=== PATIENT | female | born 1990 | race Caucasian/White ===

== ENCOUNTER 2018-09-24 21:12 | Emergency (ER) | payer OTHER ==
[~2018-09-24] VITALS: Ht 160 cm; Wt 70.8 kg
[2018-09-24] MEDS ORDERED: VITAFOL-OB+DHA1 EACH PO (21:34)
[2018-09-24] MEDS ORDERED: AMOXICILLIN875 MG PO (22:58)
[2018-09-24] MEDS ORDERED: REGLAN 10 MG TA10 MG PO (22:58)
[2018-09-24 23:37] VITALS: BP 144/77
== END 2018-09-24 23:39 | disposition home or self-care (01) ==
LOC: ER 21:12
DX: O99.511 Diseases of the respiratory system complicating pregnancy, first trimester (principal); J01.10 Acute frontal sinusitis, unspecified; Z98.890 Other specified postprocedural states; Z88.8 Allergy status to other drugs, medicaments and biological substances; Z3A.08 8 weeks gestation of pregnancy

== ENCOUNTER 2018-10-22 01:58 | Emergency (ER) | payer OTHER ==
[~2018-10-22] VITALS: Ht 152.4 cm; Wt 71.2 kg
[~2018-10-22 01:58] MED LIST: AMOXICILLIN875 MG PO; REGLAN 10 MG TA10 MG PO; VITAFOL-OB+DHA1 EACH PO
[2018-10-22 02:35] LABS: CALCIUM 10.1 mg/dL (8.5-10.1); CREATININE 0.5 mg/dL (0.6-1.0); POTASSIUM 3.9 mmol/L (3.5-5.1)
[2018-10-22 02:41] LABS: ALBUMIN 3.1 g/dL (3.4-5.0); TOTAL BILIRUBIN 0.2 mg/dL (<0.1-1.0); TOTAL PROTEIN 7.5 g/dL (6.4-8.2)
[2018-10-22 02:43] LABS: ABSOLUTE NEUTROPHILS 7.3 thou/uL (1.4-8.2); BASOPHILS 0.3 % (0.0-2.0); EOSINOPHILS 0.7 % (0.0-3.0); LYMPHOCYTES 17.9 % (24.0-44.0); MCHC 34.1 g/dL (28.0-37.0); MCV 84.9 fL (80.0-100.0); MONOCYTES 5.8 % (1.0-8.0); PLATELET COUNT 288 thou/uL (150-400); POLYS 75.3 % (36.0-66.0); RBC 4.48 mil/uL (4.20-5.00); WBC 9.7 thou/uL (4.0-11.0)
[2018-10-22 03:22] LABS: URINE BILIRUBIN NEGATIVE (Negative); URINE BLOOD NEGATIVE (Negative); URINE CLARITY CLEAR; URINE COLOR STRAW; URINE GLUCOSE-RANDOM* NEGATIVE (Negative); URINE KETONES NEGATIVE (Negative); URINE PROTEIN (DIPSTICK) NEGATIVE (Negative)
[2018-10-22 03:23] LABS: URINE LEUKOCYTES-REFLEX NEGATIVE (Negative); URINE NITRITE-REFLEX NEGATIVE (Negative); URINE UROBILINOGEN 0.2 E.U./dl (0.2-1.0)
[2018-10-22] MEDS ORDERED: ZOFRAN 4 MG ORAL4 MG PO (03:32)
[2018-10-22] MEDS ORDERED: CARAFATE 1 GM TA1 G1 PO (03:32)
[2018-10-22] MEDS ORDERED: PEPCID40 MG PO (03:32)
[2018-10-22 03:41] VITALS: BP 122/72
== END 2018-10-22 03:43 | disposition home or self-care (01) ==
LOC: ER 01:58
PROVIDERS: Emergency Medicine
DX: O26.891 Other specified pregnancy related conditions, first trimester (principal); Z3A.14 14 weeks gestation of pregnancy; R10.84 Generalized abdominal pain; Z88.8 Allergy status to other drugs, medicaments and biological substances; Z98.890 Other specified postprocedural states

== ENCOUNTER → 2021-04-10 | Emergency (ER) | payer OTHER ==
[~2021-04-10] VITALS: Ht 152.4 cm; Wt 80.7 kg
[~2021-04-10] MED LIST changes: +AZITHROMYCIN 2250 MG PO; +CARAFATE 1 GM TA1 G1 PO; +NOHOMEMEDICATIONS; +PEPCID40 MG PO; +ZOFRAN 4 MG ORAL4 MG PO
[2021-04-10 17:40] LABS: ABSOLUTE NEUTROPHILS 3.2 thou/uL (1.4-8.2); BASOPHILS 0.3 % (0.0-2.0); EOSINOPHILS 0.1 % (0.0-3.0); HEMATOCRIT 39.2 % (37.0-47.0); HEMOGLOBIN 13.9 gm/dL (12.0-15.0); LYMPHOCYTES 34.4 % (24.0-44.0); MCHC 35.3 g/dL (28.0-37.0); MCV 84.9 fL (80.0-100.0); MONOCYTES 7.1 % (1.0-8.0); PLATELET COUNT 255 thou/uL (150-400); POLYS 58.1 % (36.0-66.0); RBC 4.62 mil/uL (4.20-5.00); RDW 12.3 % (10.5-14.5); WBC 5.5 thou/uL (4.0-11.0)
[2021-04-10 17:56] LABS: ANION GAP 7 mmol/L (7-16); BUN 7 mg/dL (7-18); CALCIUM 8.8 mg/dL (8.5-10.1); CHLORIDE 101 mmol/L (98-107); CO2 28 mmol/L (21-32); CREATININE 0.8 mg/dL (0.6-1.0); GLUCOSE 169 mg/dL (74-106); POTASSIUM 3.8 mmol/L (3.5-5.1); SODIUM 136 mmol/L (136-145)
[2021-04-10 18:02] LABS: ALBUMIN 3.4 g/dL (3.4-5.0); SGOT 58 U/L (15-37); SGPT 69 U/L (14-59); TOTAL BILIRUBIN 0.4 mg/dL (0.2-1.0); TOTAL PROTEIN 7.8 g/dL (6.4-8.2); TROPONIN-I <0.06 ng/mL (<0.06)
[2021-04-10 19:29] VITALS: BP 119/68
--- NOTE | 2021-04-11 09:09 | EKG ---
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
== END ==
LOC: ER 17:05
PROVIDERS: Emergency Medicine
DX: U07.1 COVID-19 (principal); Z88.8 Allergy status to other drugs, medicaments and biological substances; Z98.890 Other specified postprocedural states; Z79.899 Other long term (current) drug therapy

== ENCOUNTER 2021-04-11 17:57 | Inpatient (IN) | payer OTHER ==
[~2021-04-11] VITALS: Ht 152.4 cm; Wt 80.8 kg
[2021-04-11] VITALS (7 sets, daily range): BP systolic 93–115; BP diastolic 46–65
[2021-04-11 19:34] LABS: ABSOLUTE NEUTROPHILS 7.5 thou/uL (1.4-8.2); HEMATOCRIT 38.5 % (37.0-47.0); HEMOGLOBIN 13.2 gm/dL (12.0-15.0); LYMPHOCYTES 13.8 % (24.0-44.0); MCH 29.4 pg (26.0-34.0); MCHC 34.3 g/dL (28.0-37.0); MCV 85.7 fL (80.0-100.0); MONOCYTES 5.6 % (1.0-8.0); PLATELET COUNT 303 thou/uL (150-400); POLYS 80.6 % (36.0-66.0); RBC 4.49 mil/uL (4.20-5.00); RDW 12.3 % (10.5-14.5); WBC 9.3 thou/uL (4.0-11.0)
[2021-04-11 19:45] LABS: ANION GAP 7 mmol/L (7-16); BUN 7 mg/dL (7-18); CALCIUM 9.2 mg/dL (8.5-10.1); CHLORIDE 104 mmol/L (98-107); CO2 27 mmol/L (21-32); CREATININE 0.8 mg/dL (0.6-1.0); GLUCOSE 228 mg/dL (74-106); POTASSIUM 4.1 mmol/L (3.5-5.1); SODIUM 138 mmol/L (136-145)
[2021-04-11 19:55] LABS: ALBUMIN 3.2 g/dL (3.4-5.0); SGOT 36 U/L (15-37); SGPT 55 U/L (14-59); TOTAL BILIRUBIN 0.3 mg/dL (0.2-1.0); TOTAL PROTEIN 7.6 g/dL (6.4-8.2); TROPONIN-I <0.06 ng/mL (<0.06)
[2021-04-11 19:59] LABS: BE(vivo) -1.5 mmol/L (-2 to +3); HCO3 21.3 mmol/L (22.0-26.0); PCO2 30.6 mmHg (35.0-45.0); PO2 69.1 mmHg (80.0-100.0); sO2 94.9 % (92.0-98.0)
--- NOTE | 2021-04-11 22:00 | NUR ---
PT ADMITED TO ICU.PT AAAOX4, SEEN BREATHING WITH RESPIRATORY DISTRESS ON 6L NC.
[2021-04-12] VITALS (44 sets, daily range): BP systolic 90–127; BP diastolic 41–84
[2021-04-12 05:07] LABS: ALBUMIN 2.5 g/dL (3.4-5.0); CALCIUM 7.9 mg/dL (8.5-10.1); CREATININE 0.7 mg/dL (0.6-1.0); POTASSIUM 4.7 mmol/L (3.5-5.1); TOTAL BILIRUBIN 0.2 mg/dL (0.2-1.0); TOTAL PROTEIN 6.6 g/dL (6.4-8.2)
[2021-04-12 05:21] LABS: HEMATOCRIT 33.4 % (37.0-47.0); HEMOGLOBIN 11.6 gm/dL (12.0-15.0); MCH 30.2 pg (26.0-34.0); MCHC 34.6 g/dL (28.0-37.0); MCV 87.3 fL (80.0-100.0); RBC 3.83 mil/uL (4.20-5.00); RDW 12.3 % (10.5-14.5); WBC 5.9 thou/uL (4.0-11.0)
--- NOTE | 2021-04-12 06:33 | NUR ---
PT WORKING TOWARDS GOALS, PLAN OF CARE DISCUSSED WITH ALL QUESTIONS ANSWERED. PT AAOX3, STABLE VITALS, AND RESTING COMFORTABLY ON 3L NC. UNEVENTLFUL SHIFT, WILL CONTINUE TO MONITOR.
--- NOTE | 2021-04-12 06:37 | NUR ---
PT NEWLY ADMITED FROM ED, REPORT RECEIVED FROM KE OVALLES. PT ARRIVED ON UNIT AT 2200 ON 6L NC WITH SIGNS OF RESPIRATORY DISTRESS. NURSE PRACTITIONER AT BEDSIDE WITH ORDERS RECEIVED. NO SIGNIFICANT EVENTS TO REPORT AT THIS TIME. WILL CONTINUE TO MONITOR
--- NOTE | 2021-04-12 07:39 | EKG ---
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
--- NOTE | 2021-04-12 10:47 | NUR ---
ASSUMED CARE OF PT AT 0700 DR. RODGERS AT BEDSIDE AT 0945, ORDERS TO TRANSFER TO 3W GIVEN PT IS ALERT AND ORIENTED, BREATHING IS BETTER AND I HAVE BEEN ABLE TO BRING DOWN HER O2 TO 4L [place] NC
[2021-04-12 12:48] LABS: URINE BILIRUBIN NEGATIVE (Negative); URINE BLOOD NEGATIVE (Negative); URINE CLARITY CLEAR; URINE COLOR YELLOW; URINE GLUCOSE-RANDOM* 2+ (Negative); URINE KETONES NEGATIVE (Negative); URINE LEUKOCYTES NEGATIVE (Negative); URINE NITRITE NEGATIVE (Negative); URINE PROTEIN (DIPSTICK) TRACE (Negative)
--- NOTE | 2021-04-12 21:44 | NUR ---
PT RESTING IN BED. PROPPED WITH PILLOWS. WHEN STAFF ASSISTED WITH REPOSITIONING PT STARTED HAVING ANXIETY AND WAS ENCOURAGED TO BREATH THROUGH HER NOSE AND OUT OF HER MOUTH. SATURATIONS REMAINED IN THE 90S. O2 PER NC 4L. LUNGS COARSE LOOSE COUGH. KANG TO DD. IVF INTACT. 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 PT STATED SHE HAS A 2 AND 4 YEAR OLD AT HOME BUT BOTH ARE NOT ILL. PT DECLINED SCALE INSULIN STATING SHE WAS CONCERNED THAT WITH THE METFORMIN HER BS MAY DROP.
--- NOTE | 2021-04-12 23:26 | NUR ---
PT AWAKENED REPORTING L BREAST DISCOMFORT MOVING TO UPPER AREA AND THEN TO THE RIGHT. PT REPORTED PRESSING ON IT RELIEVES THE DISCOMFORT. PT PROVIDED WARM BLANKET TO PLACE AND CHEST AND REPORTED FEELING BETTER. PRN MYLANA AND TYLENOL PROVIDED. PROVIDER UPDATED EKG OBTAINED. RESPIRATORY UPDATED. PT DECLINED PRN TREATMENT, SHE HAD PREVIOUSLY HAD SCHEDULED BREATHING TREATMENTS.
[2021-04-13 00:06] LABS: GLYCOHEMOGLOBIN (HGB A1C) 8.5 % (4.8-5.6)
[2021-04-13 00:06] LABS: GLYCOHEMOGLOBIN (HGB A1C) 8.4 % (4.8-5.6)
[2021-04-13 00:10] VITALS: BP 112/76
--- NOTE | 2021-04-13 00:37 | NUR ---
PT ASSISTED TO PRONING POSITION. PT REPORTED INCREASE IN COMFORT. PT DOES GET VERY ANXIOUS AND SOA WHEN SITTING UPRIGHT OR MOVING POSITIONS.
[2021-04-13 00:48] LABS: HEMATOCRIT 34.3 % (37.0-47.0); HEMOGLOBIN 11.8 gm/dL (12.0-15.0); LYMPHOCYTES 21.2 % (24.0-44.0); MCH 29.9 pg (26.0-34.0); MCHC 34.5 g/dL (28.0-37.0); MCV 86.5 fL (80.0-100.0); MONOCYTES 12.8 % (1.0-8.0); PLATELET COUNT 314 thou/uL (150-400); RBC 3.97 mil/uL (4.20-5.00); RDW 12.3 % (10.5-14.5)
[2021-04-13 00:52] LABS: ALBUMIN 2.4 g/dL (3.4-5.0); ANION GAP 9 mmol/L (7-16); BUN 10 mg/dL (7-18); CALCIUM 7.9 mg/dL (8.5-10.1); CHLORIDE 106 mmol/L (98-107); CO2 26 mmol/L (21-32); CREATININE 0.7 mg/dL (0.6-1.0); DIRECT BILIRUBIN < 0.1 mg/dL (<0.1-0.2); GLUCOSE 228 mg/dL (74-106); PHOSPHORUS 2.3 mg/dL (2.5-4.9); POTASSIUM 4.1 mmol/L (3.5-5.1); SGOT 21 U/L (15-37); SGPT 37 U/L (30-65); SODIUM 141 mmol/L (136-145); TOTAL BILIRUBIN 0.2 mg/dL (0.2-1.0); TOTAL PROTEIN 6.4 g/dL (6.4-8.2)
[2021-04-13 01:30] VITALS: BP 107/71
[2021-04-13 01:53] LABS: ANION GAP 7 mmol/L (7-16); BUN 11 mg/dL (7-18); CALCIUM 7.9 mg/dL (8.5-10.1); CHLORIDE 107 mmol/L (98-107); CO2 27 mmol/L (21-32); CREATININE 0.6 mg/dL (0.6-1.0); GLUCOSE 233 mg/dL (74-106); POTASSIUM 4.4 mmol/L (3.5-5.1); SODIUM 141 mmol/L (136-145); TROPONIN-I <0.06 ng/mL (<0.06)
--- NOTE | 2021-04-13 04:45 | NUR ---
PT RETURNED TO SLEEPING ON HER BACK, PT STATED SHE FEELS BETTER.
[2021-04-13 05:10] VITALS: BP 117/72
--- NOTE | 2021-04-13 07:38 | EKG ---
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
--- NOTE | 2021-04-13 08:24 | NUR ---
ASSUMED CARE OF PT AT 0700 PT IS ALERT AND ORIENTED, SHE STATED THAT SHE LOVED BEING ON HER STOMACH AND THAT IT REALLY HELPED HER BREATHING. SHE WOULD LIKE TO PRONE AGAIN TODAY.
--- NOTE | 2021-04-13 10:56 | NUR ---
Chart review. Unable to visit with her r/t on [place] o2 at 4.0L. Discussed during los. No anticipated dc today. Possible able to move out of icu to med surg when bed is open.
--- NOTE | 2021-04-13 11:46 | HC ---
[facility] [place] [address] CONSULTATION Name: EDUARDO FISCHER Room #: 241-P ADM IN M.R.#: [id number] Admission: 04/11/21 Attend Phys: Wilmer Truong MD Discharge: Date of : 89 Report #: [id number] THIS REPORT FOR: cc: FAM - No family physician/PCP FAM - No family physician/PCP Marcello Small MD ~ DATE OF SERVICE: 04/12/2021 INFECTIOUS DISEASE CONSULTATION ATTENDING PHYSICIAN: Dr. Steiner. REASON FOR EVALUATION: COVID-19 infection complicated by pneumonitis and respiratory failure. HISTORY OF PRESENT ILLNESS: Chart reviewed. The patient examined. This is a 30-year-old woman with a history of gestational diabetes, who is confirmed to have COVID-19 infection on 04/10, she was discharged after hydration. She returned with increasing dyspnea and quite vigorous cough with chest related pain as well as fevers which have been high-grade, some nausea and poor p.o. intake as well. She notes spouse as well as a child have confirmed positive as well. Evaluation noted her to be not . Influenza antigen testing was negative, was found to have an elevated glucose up to 258 most recently, D-dimer 0.34. Chest x-ray did show perihilar infiltrates bilaterally. Lactic acid 1.9. ABGs on 3 liters showed a pO2 of 69, pH 7.460. She was initiated on combination therapy with azithromycin and ceftriaxone empirically as well as remdesivir, corticosteroids and vitamins. Currently, she is maintained on 8 liters nasal cannula supplemental oxygen. She is generally lucid. ALLERGIES: INSULIN GLARGINE, WHICH CAUSES URTICARIA. PAST MEDICAL HISTORY: Gestational diabetes, preeclampsia. SOCIAL HISTORY: Nonsmoker. No ethanol. No illicit drug use. FAMILY HISTORY: Noncontributory. REVIEW OF SYSTEMS: Otherwise, as noted above. PHYSICAL EXAMINATION: GENERAL: She is in moderate to marked distress. She has paroxysmal coughing is quite vigorous. She is generally lucid, reasonably well nourished. VITAL SIGNS: Temperature 98.4, is 102.9 on admission; pulse 62; respirations 24; blood pressure 111/71. SKIN: Warm, dry, no rashes. HEENT: Nasal cannula in place. [address] [address] CONSULTATION Name: FISCHEREDUARDO Room #: [address] [place] [address] IN M.R.#: [id number] Admission: 04/11/21 Attend Phys: Wilmer Truong MD Discharge: Date of : 89 Report #: [id number] NECK: Supple. Extraocular muscles intact. Normocephalic. LUNGS: Scattered coarse breath sounds bilaterally. HEART: Regular. I do not appreciate any murmur. ABDOMEN: Soft, otherwise nontender, minimally distended. EXTREMITIES: Bilateral lower extremities are unremarkable. GENITOURINARY AND RECTAL: Deferred. LABORATORY DATA: Chest x-ray as described above, multifocal infiltrates, borderline mild cardiomegaly. Blood cultures done one sterile. Electrolytes: Sodium 140, potassium 4.7, chloride 106, bicarbonate 25, anion gap of 9, BUN and creatinine 9 and 0.7, glucose 341, AST of 26, ALT of 44, albumin 2.5, total protein 6.6. Estimated GFR 99. CBC: White count of 5.9, H and H 11.6 and 33.4, platelets of 258. Procalcitonin less than 0.05. Lactic acid 1.9. ASSESSMENT AND PLAN: COVID-19 infection complicated by pneumonitis and respiratory failure with hyperglycemia. We will continue empiric therapy with antibiotics. We will adjust regimen. The patient has continued remdesivir, add Actemra to corticosteroids and vitamins. She remains quite tenuous at this point. Continue to monitor expectantly oxygen therapy, wean as available, certainly a risk for additional complications. <ELECTRONICALLY SIGNED> By: Marcello Small MD 04/13/21 1146 0839 [id number] Marcello Small MD /nt
--- NOTE | 2021-04-13 13:41 | NUR ---
Discussed during los and unite rounds. + covid, possible move out of icu, when have bed as ordered by hospitalist. Requiring oxygen. CM called spouse, unable to leave message r/t mail box is full. Will cont following as needed for dc needs.
[2021-04-13 18:51] VITALS: BP 114/77
--- NOTE | 2021-04-13 19:31 | NUR ---
PATIENT TRANSFER FROM ICU AT 1835. A/O X4. 3L/NC. WILL KEEP MONITOR.
[2021-04-13 20:00] VITALS: BP 118/76
[2021-04-14 04:05] VITALS: BP 104/68
[2021-04-14 06:02] LABS: ALBUMIN 2.4 g/dL (3.4-5.0); ANION GAP 8 mmol/L (7-16); BUN 14 mg/dL (7-18); CALCIUM 7.7 mg/dL (8.5-10.1); CHLORIDE 106 mmol/L (98-107); CO2 25 mmol/L (21-32); CREATININE 0.5 mg/dL (0.6-1.0); DIRECT BILIRUBIN < 0.1 mg/dL (<0.1-0.2); GLUCOSE 174 mg/dL (74-106); PHOSPHORUS 3.1 mg/dL (2.5-4.9); SGOT 17 U/L (15-37); SGPT 29 U/L (30-65); SODIUM 139 mmol/L (136-145); TOTAL BILIRUBIN 0.3 mg/dL (0.2-1.0); TOTAL PROTEIN 6.1 g/dL (6.4-8.2)
--- NOTE | 2021-04-14 06:43 | NUR ---
PT STILL HAVING COMPLAINTS OF NAUSEA AND HEARTBURN. GAVE MAALOX AND ZOFRAN TO HELP. PT STATES IT INCREASES WITH COUGHING. PT UPTO BSC WITH X1 ASSIST. 3L 02. HOURLY ROUNDING.
[2021-04-14 07:39] VITALS: BP 121/74
[2021-04-14 11:45] VITALS: BP 116/78
[2021-04-14 15:09] VITALS: BP 113/79
--- NOTE | 2021-04-14 15:37 | NUR ---
SW reviewed chart and spoke with nursing and attending physician. Pt was transferred to 3 from ICU last evening and is progressing towards goals for discharge. Discharge home is anticipated for tomorrow. Pt is in Enhanced Isolation due to COVID. Pt is afebrile and not requiring O2. Pt is on IV abx, IV steroids and Remdesivir. SW placed call to pt's room. No answer. Per chart, pt is alert/orientated x 4 and lives at home with her . Plan is for pt to discharge home. JOSE L is following to assist as needed with discharge planning.
[2021-04-14 19:30] VITALS: BP 117/76
[2021-04-14 23:33] VITALS: BP 119/81
[2021-04-15 03:43] VITALS: BP 136/98
--- NOTE | 2021-04-15 06:16 | NUR ---
Patient making progress towards outcome goals. Oxygenation optimal on room air but has is tachypnea and chest discomfort with activity, sleeping on prone position and Tylenol made patient feel better. GI upset, on pepcid. Did not tolerate vitamin supplements. Gait steady, up adlib in room.
[2021-04-15 06:30] LABS: ALBUMIN 2.8 g/dL (3.4-5.0); ANION GAP 9 mmol/L (7-16); BUN 15 mg/dL (7-18); CALCIUM 8.6 mg/dL (8.5-10.1); CHLORIDE 104 mmol/L (98-107); CO2 27 mmol/L (21-32); CREATININE 0.6 mg/dL (0.6-1.0); DIRECT BILIRUBIN < 0.1 mg/dL (<0.1-0.2); GLUCOSE 131 mg/dL (74-106); PHOSPHORUS 3.7 mg/dL (2.5-4.9); POTASSIUM 3.7 mmol/L (3.5-5.1); SGOT 31 U/L (15-37); SGPT 43 U/L (30-65); SODIUM 140 mmol/L (136-145); TOTAL BILIRUBIN 0.3 mg/dL (0.2-1.0); TOTAL PROTEIN 6.6 g/dL (6.4-8.2)
[2021-04-15 08:19] VITALS: BP 141/102
[2021-04-15 11:23] VITALS: BP 118/84
[2021-04-15] MEDS ORDERED: METFORMIN HCL500 MG PO (12:16)
[2021-04-15] MEDS ORDERED: MIRALAX17 GM PO (12:16)
[2021-04-15] MEDS ORDERED: ACEROLA C500 MG PO (12:16)
[2021-04-15] MEDS ORDERED: VITAMIN B-1100 M2 PO (12:16)
[2021-04-15] MEDS ORDERED: ZINC SULFATE50 MG PO (12:16)
[2021-04-15] MEDS ORDERED: CEFDINIR300 MG PO (12:16)
[2021-04-15] MEDS ORDERED: PROAIR HFA8.5 GM INH (12:16)
[2021-04-15] MEDS ORDERED: PEPCID20 MG PO (12:16)
[2021-04-15] MEDS ORDERED: PREDNISONE 20 M20 MG PO (12:17)
[2021-04-15] MEDS ORDERED: OTHER MISCELL (12:21)
[2021-04-15 12:38] VITALS: BP 118/84
--- NOTE | 2021-04-15 12:58 | NUR ---
ASSUMED PATIENT CARE AT 0700. A/O X4. UP AD SEVEN. PROGRESSING TOWARDS POC GOALS. DC TO HOME NOW.
--- NOTE | 2021-04-15 13:42 | NUR ---
DISCHARGE NOTE: SW reviewed chart and spoke with nursing and attending physician. Pt remains in Enhanced Isolation due to COVID. Rest/exercise oximetry test completed. Pt does not need home O2. Pt was discharged home earlier today. Pt had transportation home. No discharge needs identified at this time, but is available to assist should needs arise.
== END 2021-04-15 13:32 | disposition home or self-care (01) | DRG 177 ==
LOC: ER 17:57 → EROBS 20:32 → ICU 20:32 → 3W 04-13 18:46
PROVIDERS: Internal Medicine Pulmonary Disease; Nurse Practitioner Family; Physician Assistant; Specialist; ADMIT Hospitalist; ATTEND Hospitalist
PROC: XW033E5 Introduction of Remdesivir Anti-infective into Peripheral Vein, Percutaneous Approach, New Technology Group 5 (ICD-10-PCS; principal; 2021-04-11)
PROC: 5A0935A Assistance with Respiratory Ventilation, Less than 24 Consecutive Hours, High Flow/Velocity Cannula (ICD-10-PCS; 2021-04-12)
DX: U07.1 COVID-19 (principal); J12.82 Pneumonia due to coronavirus disease 2019; J80 Acute respiratory distress syndrome; E11.65 Type 2 diabetes mellitus with hyperglycemia; Z79.899 Other long term (current) drug therapy
CPT/HCPCS: 10203; 10879